=== PATIENT | female | born 1960 | race Caucasian/White ===

== ENCOUNTER 2016-12-31 10:16 | Emergency (ER) | payer OTHER ==
[~2016-12-31] VITALS: Ht 162.6 cm; Wt 70.0 kg
[2016-12-31 10:22] VITALS: PULSE 93; RESP 16; TEMP 97.7; O2SAT 99
[2016-12-31] MEDS ORDERED: NIAC50TA4 PO (10:28)
--- NOTE | 2016-12-31 10:37 | PD ---
HPI Chief Complaint: Injury Time Seen by Provider: 10:29 Travel History International Travel<30 days: No Contact w/Intl Traveler<30days: No Traveled to known affect area: No History of Present Illness HPI This patient complains of left ankle pain and injury. Yesterday evening she stepped in a hole and twisted her left ankle. She has pain which is worse with weightbearing. Duration one day PFSH Past Medical History High Cholesterol: Yes Medical other: Yes (LYME DISEASE) Migraines: Yes Social History Alcohol Use: No Tobacco Use: No Substance Use: No Allergies-Medications (Allergen,Severity, Reaction): Coded Allergies: Penicillin (Verified Allergy, Unknown, Hives, 12/31/16) Sulfa (Verified Allergy, Unknown, Hives, 12/31/16) Reported Meds & Prescriptions Reported Meds & Active Scripts Active Reported Niacin 50 Mg Tab 50 Mg PO DAILY Review of Systems General / Constitutional: No: Fever HENT: No: Headaches Cardiovascular: No: Chest Pain or Discomfort Respiratory: No: Cough Physical Exam Narrative SKIN: Focused skin assessment reveals no rash or ulcers. Skin is warm and dry. Palpation shows no induration or nodules. Psych: Normal mood and affect. Normal insight and judgment. Left ankle: There is tenderness and swelling at the lateral malleolus. Neurovascularly intact without open wound Data Data Last Documented VS Vital Signs Date Time Temp Pulse Resp B/P Pulse Ox O2 Delivery O2 Flow Rate FiO2 12/31/16 10:22 97.7 93 16 99 Orders Ankle, Complete ([id number]) (12/31/16 ) Splint Or Brace Apply/Monitor (12/31/16 11:14) Crutches (12/31/16 11:14) MDM Medical Decision Making Medical Screen Exam Complete: Yes Emergency Medical Condition: Yes Medical Record Reviewed: Yes Differential Diagnosis Ankle fracture, ankle dislocation, ankle sprain Narrative Course I have reviewed the patient's electronic medical record. I reviewed her left ankle x-rays which show no fracture I gave her crutches and a Velcro stirrup splint Will ice and elevate and follow-up with her physician Diagnosis Primary Impression: Left ankle sprain Qualified Code: S93.432A - Sprain of tibiofibular ligament of left ankle, initial encounter Additional Instructions: Use crutches Ice and elevate The patient was advised to follow up with their physician and return if they worsen. Med/Other Pt SpecificInfo: Other Disposition: 01 DISCHARGE HOME Condition: Stable Heriberto Chaney MD Dec 31, 2016 10:37
--- NOTE | 2016-12-31 11:27 | RADHPO ---
EXAM DATE/TIME: 12/31/2016 10:41 [facility] COMPARISON: No previous studies available for comparison. INDICATIONS : Left ankle pain and swelling laterally. MEDICAL HISTORY : None. SURGICAL HISTORY : None. ENCOUNTER: Initial ACUITY: 1 day PAIN SCORE: 8/10 LOCATION: Left ankle laterally FINDINGS: Three view exam was performed of the left ankle. The bony structures are in normal alignment. No ev idence of The ankle mortise is intact. No radiopaque foreign bodies are seen. Bony mineralization i s normal. There is soft tissue swelling over lateral malleolus. CONCLUSION: Soft tissue swelling over lateral malleolus with no acute fracture or malalignment. Aaron Jordan MD on December 31, 2016 at 11:18 Board Certified Radiologist. This report was verified electronically.
== END 2016-12-31 11:30 | disposition home or self-care (01) ==
LOC: PHEFT 10:16
DX: S93.402A Sprain of unspecified ligament of left ankle, initial encounter (principal); E78.00 Pure hypercholesterolemia, unspecified
CPT/HCPCS: 73610; 99283; E0113; L1906